=== PATIENT | male | born 1995 | race Caucasian/White ===

== ENCOUNTER 2017-01-15 17:58 | Emergency (ER) | payer OTHER ==
[~2017-01-15] VITALS: Ht 182.9 cm; Wt 103.0 kg
[2017-01-15 18:09] VITALS: TEMP 36.7; Ht 182.9 cm; Wt 103.0 kg
[2017-01-15] MEDS ORDERED: ONDANSETRON INJ 2 MG/ML 2 ML VIAL IV STA ×2 (18:54→20:59)
[2017-01-15] MEDS ORDERED: SODIUM CHLORIDE 0.9% 1000ML 2,000 ML IV STA (18:54)
[2017-01-15] MEDS ORDERED: DiphenhydrAMINE HCL 50 MG/ML VIAL IV STA (18:54)
[2017-01-15 19:22] LABS: HEMATOCRIT 49.8 % (42-52); MEAN CELL VOLUME 80.1 fL (80-100); MEAN CORPUSCULAR HEMOGLOBIN 30.1 pg (25-34); MEAN CORPUSCULAR HGB CONC 37.6 g/dl (32-36); MEAN PLATELET VOLUME 10.1 fL (7.4-10.4); PLATELET COUNT 260 K/uL (130-400); RED BLOOD COUNT 6.22 M/uL (4.7-6.1); WHITE BLOOD COUNT 16.03 K/uL (4.8-10.8)
[2017-01-15 19:41] LABS: BUN/CREATININE RATIO 9.5 (10-20); CREATININE 1.3 mg/dl (0.60-1.40); POTASSIUM 3.7 mmol/L (3.5-5.1)
[2017-01-15 19:42] LABS: CALCIUM 9.7 mg/dl (8.5-10.1)
[2017-01-15] MEDS ORDERED: MoRPHine SULFATE 4 MG/ML 1 ML CARP\\VIAL IV STA (20:59)
[2017-01-15] MEDS ORDERED: ONDANSETRON HOME PACK 4MG OD TAB PO ONE (21:00)
[2017-01-15] MEDS ORDERED: DIPHENOXYLATE/ATROPINE 2.5/0.025MG TAB PO ONE (21:00)
[2017-01-15] MEDS ORDERED: ONDA4TAB10 SL (21:02)
[2017-01-15] MEDS ORDERED: DPH/ PO (21:02)
--- NOTE | 2017-01-15 21:03 | EMERGENCY ROOM VISIT NOTE ---
History Report prepared by Bobbi: Angeles Ford Under the Supervision of: Dr. Marlo Hatch M.D. First contact with patient: 18:43 Chief Complaint: NAUSEA Stated Complaint: NAUSEA Nursing Triage Summary: pt has flu like sx went to urgent care, vomiting and dizzy sent here for eval History of Present Illness The patient is a 21 year old male who presents to the Emergency Room with complaints of persistent nausea starting this morning. He reports that his roommates have had the stomach flu recently. This morning he felt sick and went to urgent care. His body felt numb and he felt lightheaded. He has had vomiting , diarrhea, and abdominal pain. He took some Imodium, but could not keep it down. Source of History: patient Onset: this morning Position: other (global) Quality: other (nausea) Timing: other (persistent) Associated Symptoms: + abdominal pain, + diarrhea, + numbness, + vomiting Note: Pt reports feeling lightheaded. Review of Systems See HPI for pertinent positives & negatives. A total of 10 systems reviewed and were otherwise negative. Family History Patient reports no known family medical history. Social History Smoking Status: Never Smoker Marital Status: single Housing Status: lives with roommate Occupation Status: [employer] student Current/Historical Medications Scheduled Ondasetron Odt (Zofran Odt), 4 MG SL Q6H Scheduled PRN Diphenoxylate/Atropine (Lomotil 2.5-0.025 mg), 1 TAB PO TID PRN for Diarrhea Allergies Coded Allergies: Codeine (Verified Allergy, Intermediate, Hyperventilate, 01/15/17) Physical Exam Vital Signs Date Time Temp Pulse Resp B/P Pulse Ox O2 Delivery O2 Flow Rate FiO2 01/15/17 21:05 97 18 135/77 100 Room Air 01/15/17 19:16 92 18 131/94 100 Room Air 01/15/17 18:09 36.7 112 18 119/81 99 Room Air Physical Exam GENERAL: Patient is nauseous appearing, dehydrated appearing. HEENT: No acute trauma, normocephalic atraumatic, mucous membranes dry, no nasal congestion, no scleral icterus. NECK: No stridor, no adenopathy, no meningismus, trachea is midline. LUNGS: No dyspnea. Clear to auscultation and equal bilaterally. No wheeze, no rhonchi. HEART: Regular rate and rhythm. No murmurs, rubs, gallops appreciated. ABDOMEN: Soft, bowel sounds positive, no masses appreciated, no peritonitis. Vague epigastric tenderness to palpation. BACK: No midline tenderness, no CVA tenderness EXTREMITIES: Normal motion all extremities, no cyanosis, no edema. NEUROLOGIC: Alert and oriented, no acute motor or sensory deficits, no focal weakness, cranial nerves grossly intact. SKIN: No rash, no jaundice, no diaphoresis. Medical Decision & Procedures Laboratory Results 01/15/17 19:10 01/15/17 19:10 Test 01/15/17 19:10 Red Blood Count 6.22 M/uL (4.7-6.1) Mean Corpuscular Volume 80.1 fL (80-100) Mean Corpuscular Hemoglobin 30.1 pg (25-34) Mean Corpuscular Hemoglobin Concent 37.6 g/dl (32-36) RDW Standard Deviation 36.2 fL (36.4-46.3) RDW Coefficient of Variation 12.5 % (11.5-14.5) Mean Platelet Volume 10.1 fL (7.4-10.4) Anion Gap 14.0 mmol/L (3-11) Est Creatinine Clear Calc Drug Dose 110.6 ml/min Estimated GFR () 89.8 Estimated GFR (Non- 77.5 BUN/Creatinine Ratio 9.5 (10-20) Calcium Level 9.7 mg/dl (8.5-10.1) Laboratory results as reviewed by me. Medications Administered Medications (Trade) Dose Ordered Sig/Simona Route Start Time Stop Time Status Last Admin Dose Admin Sodium Chloride (Nss 1000ml) 2,000 ml @ 999 mls/hr Q2H1M STAT IV 01/15/17 18:54 01/15/17 20:54 DC 01/15/17 19:10 999 MLS/HR Ondansetron HCl (Zofran Inj) 4 mg NOW STAT IV 01/15/17 18:54 01/15/17 18:56 DC 01/15/17 19:11 4 MG Diphenhydramine HCl (Benadryl Inj) 50 mg NOW STAT IV 01/15/17 18:54 01/15/17 18:56 DC 01/15/17 19:11 50 MG Morphine Sulfate (MoRPHine SULFATE INJ) 4 mg NOW STAT IV 01/15/17 20:59 01/15/17 21:00 DC 01/15/17 21:07 4 MG Ondansetron HCl (Zofran Inj) 4 mg NOW STAT IV 01/15/17 20:59 01/15/17 21:00 DC 01/15/17 21:06 4 MG Diphenoxylate HCl/ Atropine (Lomotil Tab) 2 tab NOW ONCE PO 01/15/17 21:00 01/15/17 21:01 DC 01/15/17 21:06 2 TAB Ondansetron HCl (ZOFRAN ODT 4MG Home Pack) 1 homepack UD ONCE PO 01/15/17 21:00 01/15/17 21:01 DC 01/15/17 21:07 1 HOMEPACK ED Course 1847: The patient was evaluated in room A4. A complete history and physical exam was performed. 1853: Benadryl Inj 50 mg IV, Zofran Inj 4 mg IV, NSS 2000 ml @ 999 mls/hr IV. 1945: I reevaluated the patient. He is feeling much better. 2019: I reevaluated the patient. He is feeling better. He has mildl periumbilical discomfort w/o tenderness to palpation. 2055: I reevaluated the patient. He is resting comfortably. I discussed the pros and cons of having a CT scan with him. He declined to have a CT scan today. He would like mild medications for pain. I discussed results and discharge instructions: he verbalized understanding and agreement. The patient is ready for discharge. 2058: Zofran Inj 4 mg IV, Morphine Sulfate 4 mg IV. 2100: Ondansetron HCl 1 homepack PO, Lomotil Tab 2 tab PO. Medical Decision Differential: Gastroenteritis, Food Borne, Esophageal Perforation, , Electrolyte Abnormality, Dehydration, Intraabdominal Infection, UTI/ Pyelonephritis, Bowel Obstruction, Biliary Pathology, amongst other pathology entertained. 21 yr old male with nausea, vomiting, diarrhea and abdominal cramping that is identical to both his roommates symptoms. He admits he is usually on dehydrated side and thus with this episode he has become orthostatic. Much improved with above. Small dose morphine for abdominal cramping. He does not have surgical abdomen on multiple evaluations. Does have mild elevation of WBC but with dehydration I feel this is not due to bacterial abdominal infection. Will discharge to home with plan to RTED if worsening symptoms or other concerns. Did discuss option of CT though with current findings will monitor for next day at home. Impression Primary Impression: Gastroenteritis Additional Impression: Dehydration Scribe Attestation The scribe's documentation has been prepared under my direction and personally reviewed by me in its entirety. I confirm that the note above accurately reflects all work, treatment, procedures, and medical decision making performed by me. Departure Information Dispostion Home / Self-Care Prescriptions Diphenoxylate/Atropine (Lomotil 2.5-0.025 mg) 1 Ea Tab 1 TAB PO TID Y for Diarrhea for 10 Days, #30 TAB Prov: Marlo Hatch M.D. 01/15/17 Ondasetron Odt (ZOFRAN ODT) 4 Mg Tab 4 MG SL Q6H for Nausea, #10 TAB Prov: Marlo Hatch M.D. 01/15/17 Referrals No Doctor, Assigned (PCP) [facility] Patient Instructions ED Gastroenteritis Viral, My [facility] Problem Qualifiers
[2017-01-15 21:05] VITALS: BP 135/77; PULSE 97; O2SAT 100
== END 2017-01-15 21:50 | disposition home or self-care (01) ==
LOC: C.EDB 18:00 → C.EDA 21:50
DX: K52.9 Noninfective gastroenteritis and colitis, unspecified (principal); E86.0 Dehydration